=== PATIENT | male | born 1995 | race African-American/Black ===

== ENCOUNTER 2017-05-28 01:29 | Emergency (ER) | payer SELFPAY ==
--- NOTE | 2017-05-28 07:43 | RAD ---
PA AND LATERAL VIEWS CHEST: HISTORY: Cough. FINDINGS: The cardiomediastinum is normal. The lungs are clear. Bony thorax is normal. IMPRESSION: Normal exam. POS: [id number]
== END 2017-05-28 03:03 | disposition home or self-care (01) ==
LOC: ERS 01:29
DX: J20.9 Acute bronchitis, unspecified (principal); J45.909 Unspecified asthma, uncomplicated; Z79.899 Other long term (current) drug therapy
CPT/HCPCS: 71046